=== PATIENT | male | born 1955 | race Caucasian/White ===

== ENCOUNTER → 2024-02-21 | Outpatient (CLI) | payer MEDICARE, BC | LOC: M RAD 13:50 | PROVIDERS: ATTEND Orthopaedic Surgery Hand Surgery | DX: M25.512 Pain in left shoulder (principal) ==

== ENCOUNTER 2024-03-14 06:05 | Observation (INO) | payer MEDICARE, BC ==
[~2024-03-14] VITALS: Ht 170.2 cm; Wt 92.8 kg
[2024-03-14] VITALS (9 sets, daily range): BP systolic 96–130; BP diastolic 58–86; TEMP 96.8–97.7; O2SAT 91–95
[~2024-03-14 06:05] MED LIST: ALLO100T PO; BUPR5DIS3 TOP; CARV12.5 PO; CITA40TA7 PO; ENTR1TAB4 PO; FINA5TAB2 PO; FURO40TA2 PO; GABA-284 PO; LEVO75TA4 PO; MOME50SP2 NARES; OXYC-517 PO; SIMV10TA21 PO; SPIR50TA4 PO; TAMS1CAP17 PO
[2024-03-14] MEDS ORDERED: LR 1,000 ML IV SCH (06:45)
[2024-03-14] MEDS ORDERED: ROCURONIUM BROMIDE 50MG/5ML VIAL As Ordered ONE (06:55)
[2024-03-14] MEDS ORDERED: fentaNYL 100 MCG/2 ML INJECTION As Ordered ONE (06:55)
[2024-03-14] MEDS ORDERED: SUGAMMADEX SODIUM 500 MG/5 ML VIAL (BRIDION) As Ordered ONE (06:55)
[2024-03-14] MEDS: LIDOCAINE 1% SDV 5ML VIAL PN ONE (06:55)
[2024-03-14] MEDS ORDERED: ONDANSETRON 4MG 2ML VIAL As Ordered ONE (06:55)
[2024-03-14] MEDS ORDERED: MIDAZOLAM INJ 2MG/2ML VIAL IV PRN (06:55)
[2024-03-14] MEDS ORDERED: propofoL 200 MG/20 ML VIAL As Ordered ONE (06:55)
[2024-03-14] MEDS: dexAMETHasone 10MG/1ML VIAL PRES.FREE PN ONE (06:55)
[2024-03-14] MEDS ORDERED: ACETAMINOPHEN 1000MG 100ML IV BAG As Ordered ONE (06:55)
[2024-03-14] MEDS: ROPIvacaine 0.5% 30ML VIAL PN ONE (06:55)
[2024-03-14] MEDS: EPINEPHrine INJ 1 MG/ML 1ML AMP PN ONE (06:55)
[2024-03-14] MEDS ORDERED: fentaNYL 100 MCG/2 ML INJECTION IV PRN (06:55)
[2024-03-14] MEDS ORDERED: PHENYLEPHRINE 10MG/ML 1ML VIAL As Ordered ONE (07:01)
[2024-03-14] MEDS: ceFAZolin 2 GM/D5W 50 ML IV BAG As Ordered ONE (07:43)
[2024-03-14] MEDS: ceFAZolin SOD 2 GM in IV 1 EA IV ONE (07:45)
[2024-03-14] MEDS: TRANEXAMIC ACID 100 MG/ML 10ML VIAL As Ordered ONE (08:30)
[2024-03-14] MEDS: LIDOCAINE W/EPINEPHRINE 1% 20ML VIAL As Ordered ONE (08:44)
[2024-03-14] MEDS: DOCUSATE SODIUM 100MG CAPSULE PO SCH (09:00)
[2024-03-14] MEDS: VANCOMYCIN 1000MG/20ML VIAL As Ordered ONE (09:48)
[2024-03-14] MEDS ORDERED: oxyCODONE 5MG TAB PO PRN (10:10)
[2024-03-14] MEDS ORDERED: ONDANSETRON 4MG 2ML VIAL IV PRN ×2 (10:10→10:45)
[2024-03-14] MEDS: LR 1,000 ML IV SCH (10:10)
[2024-03-14] MEDS ORDERED: diphenhydrAMINE 50MG/ML VIAL IV PRN (10:45)
[2024-03-14] MEDS ORDERED: IBUPROFEN 600MG TAB PO PRN (10:45)
[2024-03-14] MEDS ORDERED: ACETAMINOPHEN TAB 650MG DOSE (2X325MG) PO PRN ×2 (10:45→12:05)
[2024-03-14] MEDS ORDERED: SENNA 8.6 MG TAB (SENOKOT) PO PRN (10:45)
[2024-03-14] MEDS: fentaNYL 100 MCG/2 ML INJECTION IV PRN (10:55)
[2024-03-14] MEDS: HYDROMORPHONE HCL 0.5 MG/ 0.5 ML SYRINGE IV PRN ×2 (11:37→12:35)
[2024-03-14 12:43] LABS: HEPATITIS B SURFACE ANTIGEN NEGATIVE (NEGATIVE)
[2024-03-14] MEDS: oxyCODONE 5MG TAB PO PRN ×2 (12:56→20:44)
[2024-03-14 13:46] LABS: BASO % 0.1 % (0.0-1.0); EOS % 0.1 % (0.0-3.0); HEMOGLOBIN 11.7 g/dl (13.5-17.5); LYMPH # 0.7 10^3/uL (1.5-5.0); LYMPH % 4.5 % (24.0-44.0); MEAN CORPUSCULAR HGB CONC 33.4 g/dl (32.0-36.5); MEAN CORPUSCULAR VOLUME 92.6 fl (80.0-96.0); MONO # 0.5 10^3/uL (0.0-0.8); MONO % 3.5 % (2.0-8.0); NEUTROPHILS # 13.8 10^3/uL (1.5-8.5); NEUTROPHILS % 91.1 % (36.0-66.0); PLATELET COUNT, AUTOMATED 222 10^3/uL (150-450); RED BLOOD COUNT 3.78 10^6/uL (4.30-6.10); WHITE BLOOD COUNT 15.2 10^3/uL (4.0-10.0)
[2024-03-14 14:14] LABS: ALBUMIN 3.8 G/DL (3.2-5.2); ALKALINE PHOSPHATASE 70 U/L (46-116); ALT/SGPT 17 U/L (7.0-40); AST/SGOT 14 U/L (<34); BILIRUBIN,TOTAL 0.4 MG/DL (0.3-1.2); BLOOD UREA NITROGEN 25 MG/DL (9-23); CALCIUM LEVEL 9.2 MG/DL (8.3-10.6); CARBON DIOXIDE LEVEL 26 MMOL/L (20-31); CHLORIDE LEVEL 104 MMOL/L (98-107); CREATININE FOR GFR 1.06 MG/DL (0.70-1.30); GLOMERULAR FILTRATION RATE > 60.0 (>49); GLUCOSE, FASTING 138 MG/DL (74-106); MAGNESIUM LEVEL 1.8 MG/DL (1.8-2.4); POTASSIUM SERUM 4.4 MMOL/L (3.5-5.1); SODIUM LEVEL 136 MMOL/L (136-145); TOTAL PROTEIN 6.2 G/DL (5.7-8.2)
[2024-03-14 15:07] LABS: HIV SCREEN CENTAUR SOURCE NEGATIVE (NEGATIVE)
[2024-03-14] MEDS ORDERED: GABA-284 PO (15:38)
[2024-03-14] MEDS ORDERED: TEST75GE TOP (15:43)
[2024-03-14] MEDS ORDERED: BENA25CA4 PO (15:43)
[2024-03-14] MEDS ORDERED: HOME MED LIST COMPLETE! XX SCH (15:45)
[2024-03-14] MEDS: MORPHINE 4 MG/ML 1ML VIAL IV PRN (17:23)
[2024-03-14] MEDS: ceFAZolin SOD 1 GM in D5W MINI-BAG PLUS 50 ML IV SCH (17:28)
[2024-03-14] MEDS: CARVedilol 12.5 MG TAB PO SCH (20:36)
[2024-03-14] MEDS: ENTRESTO 97-103MG TABLET (SACUBITRIL/VALSARTAN) PO SCH (20:42)
[2024-03-14] MEDS: GABAPENTIN 400MG CAP PO SCH (20:43)
[2024-03-14] MEDS: TAMSULOSIN 0.4 MG CAP PO SCH (20:43)
[2024-03-14] MEDS: SIMVASTATIN 10 MG TAB PO SCH (20:44)
[2024-03-15] VITALS: BP 108/63; TEMP 97.5; O2SAT 88
[2024-03-15] MEDS ORDERED: PILL CUTTER 1 EACH XX ONE (00:31)
[2024-03-15] MEDS: HYDROmorphone 2 MG TAB PO PRN (00:35)
[2024-03-15 04:00] VITALS: BP 102/61; TEMP 97.7; O2SAT 94
[2024-03-15] MEDS: LEVOTHYROXINE 75MCG TABLET (0.075MG) PO SCH (05:42)
[2024-03-15 08:00] VITALS: BP 107/67; TEMP 97.7; O2SAT 95
[2024-03-15 08:06] VITALS: BP 107/64
[2024-03-15] MEDS: allopurinoL 100 MG TAB PO SCH (08:06)
[2024-03-15] MEDS: FUROSEMIDE 40 MG TAB PO SCH (08:07)
[2024-03-15] MEDS: CitaloPRAM (CeleXA) 20 MG TAB PO SCH (08:08)
[2024-03-15] MEDS: GABAPENTIN 400MG CAP PO SCH (08:09)
[2024-03-15] MEDS: SPIRONOLACTONE 50 MG TAB PO SCH (08:09)
[2024-03-15] MEDS: FINASTERIDE 5MG TAB PO SCH (08:09)
[2024-03-15] MEDS ORDERED: OXYC10TA3 PO (09:20)
[2024-03-15 09:21] LABS: BASO % 0.1 % (0.0-1.0); HEMATOCRIT 32.9 % (42.0-52.0); HEMOGLOBIN 11.1 g/dl (13.5-17.5); LYMPH # 1.2 10^3/uL (1.5-5.0); MEAN CORPUSCULAR HEMOGLOBIN 31.4 pg (27.0-33.0); MEAN CORPUSCULAR HGB CONC 33.7 g/dl (32.0-36.5); MEAN CORPUSCULAR VOLUME 93.2 fl (80.0-96.0); MONO # 1.7 10^3/uL (0.0-0.8); MONO % 13.1 % (2.0-8.0); NEUTROPHILS # 9.9 10^3/uL (1.5-8.5); NEUTROPHILS % 77.3 % (36.0-66.0); PLATELET COUNT, AUTOMATED 223 10^3/uL (150-450); RED BLOOD COUNT 3.53 10^6/uL (4.30-6.10); WHITE BLOOD COUNT 12.9 10^3/uL (4.0-10.0)
[2024-03-15 09:50] LABS: BLOOD UREA NITROGEN 25 MG/DL (9-23); CALCIUM LEVEL 8.8 MG/DL (8.3-10.6); CARBON DIOXIDE LEVEL 24 MMOL/L (20-31); CHLORIDE LEVEL 105 MMOL/L (98-107); CREATININE FOR GFR 1.07 MG/DL (0.70-1.30); GLOMERULAR FILTRATION RATE > 60.0 (>49); GLUCOSE, FASTING 138 MG/DL (74-106); POTASSIUM SERUM 4.4 MMOL/L (3.5-5.1); SODIUM LEVEL 136 MMOL/L (136-145)
== END 2024-03-15 14:04 | disposition home or self-care (01) ==
LOC: M SDC 06:05 → M RR INP 06:06 → M MSPAV 14:29
PROVIDERS: ADMIT Hospitalist; ATTEND Hospitalist
DX: M25.512 Pain in left shoulder (principal); I10 Essential (primary) hypertension; Z95.0 Presence of cardiac pacemaker; E78.5 Hyperlipidemia, unspecified; E03.9 Hypothyroidism, unspecified; M10.9 Gout, unspecified; F41.9 Anxiety disorder, unspecified; F32.A Depression, unspecified; N40.0 Benign prostatic hyperplasia without lower urinary tract symptoms; Z79.899 Other long term (current) drug therapy; Z79.52 Long term (current) use of systemic steroids; Z88.1 Allergy status to other antibiotic agents
CPT/HCPCS: 23472; 36415; 64415; 73020; 80048; 80053; 83735; 85025; 86803; 87340; 87389; 88300; 93005; 96365; 96366; 96375; 96376; 97110; 97161; 97165; C1713; C1773; C1776; G0378; J0131; J0690; J1100; J1170; J2371; J2405; J3010; J3370